=== PATIENT | male | born 1960 | race Caucasian/White ===

== ENCOUNTER 2017-02-20 14:40 | Inpatient (IN) | payer BC ==
[~2017-02-20] VITALS: Ht 172.7 cm; Wt 89.8 kg
--- NOTE | ~2017-02-20 | HP ---
PATIENT'S NAME: RORY CORBIN [facility] AGE: 56 Y [address] ROOM: [address] [address] LOCATION: GPCU ADMIT DATE: 02/20/2017 History & Physical DISCHARGE DATE: FAMILY PHYSICIAN: Efren Waterman MD ATTENDING PHYSICIAN: Mary Rangel DATE OF SERVICE: HISTORY OF PRESENT ILLNESS: This is a 56-year-old male, who presented to [facility] Emergency Department with complaints of jaw pain. He states that the pain actually began on 02/19/2017 in the evening and it did go away after taking an aspirin. The patient also complained of associated pain under his shoulder blade but denied shortness of breath, palpitations, nausea, vomiting, presyncope, or syncope. EKG evaluation in the emergency department showed ST elevations in leads II, III, and aVF as well as T-wave inversions in aVL, V1, and V2. So he was subsequently called a code STEMI and transferred emergently to the catheterization suite where he underwent selective coronary angiography by Dr. Rangel and had a drug-eluting stent placed to his RCA. At the time of this dictation he is resting comfortably in the progressive care unit without any further complaints of jaw, shoulder, or chest pain. PAST MEDICAL HISTORY: 1. Hypertension. 2. Dyslipidemia. 3. Diabetes mellitus type 2 with need for insulin. 4. History of kidney stones. 5. History of neck pain. PAST SURGICAL HISTORY: 1. Right knee scoped x4 as well as an ACL repair x1. 2. Right shoulder surgery. 3. Tonsillectomy. 4. Fatty cyst removal from head. FAMILY HISTORY: The patient's mother had a history of Alzheimer's as well as congestive heart failure and diabetes and hypertension and at the age of 87. His father at the age of 65 due to an aortic tear. He has a brother with a history of thyroid cancer. SOCIAL HISTORY: The patient denies ever using tobacco. He does admit to alcohol use on 1 day a week and on those days, he will have one alcoholic drink. He denies illicit drug use. PATIENT'S NAME: RORY CORBIN [facility] AGE: 56 Y [address] ROOM: [id number] [place], [place] [address] [facility] ADMIT DATE: 02/20/2017 History & Physical DISCHARGE DATE: FAMILY PHYSICIAN: Efren Waterman MD ATTENDING PHYSICIAN: Mary Rangel HOME MEDICATIONS: 1. Invokamet 150/1000 mg p.o. twice daily. 2. Tresiba 20 units subcu daily in the evening. 3. Flexeril 10 mg p.o. daily in the evening. 4. Victoza 1.8 mg subcu daily. 5. Pravachol 80 mg p.o. daily in the evening. 6. Vitamin B12 500 mcg p.o. daily. 7. Vitamin B6 100 mg p.o. daily. 8. Fiber Gummies 2 tabs p.o. daily. 9. Amaryl 2 mg p.o. daily. 10. Cozaar 25 mg p.o. daily in the evening. 11. Ascorbic acid 500 mg p.o. daily. MEDICATION ALLERGIES: Include penicillin. REVIEW OF SYSTEMS: Pertinent positive review of systems is listed in HPI. All other review of systems evaluated are negative. DIAGNOSTIC DATA: Cardiac enzyme trends postprocedure shows CPK of 199, then 169, and 167. CK- MB of 3.3, then 2.6, then 3.6. Troponin I of less than 0.04 and 0.213 and finally 0.517. PHYSICAL EXAMINATION: VITAL SIGNS: Temperature 98.2, pulse 80, respirations 16, blood pressure 150/93, O2 saturation 96% on room air. The patient weighs 89.8 kg. SKIN: [place], warm, and dry. EYES: Sclerae clear. No xanthelasma. ENT: Oral mucosa is pink and moist. No jugular venous distention. No carotid bruits. CHEST: Respirations are even and unlabored. LUNGS: Clear to auscultation. HEART: Regular rate and rhythm. Normal S1, S2. No murmurs, rubs, or gallops. ABDOMEN: Soft and nontender. MUSCULOSKELETAL: Gait is normal. EXTREMITIES: Peripheral pulses are palpable. No clubbing, cyanosis, or edema. PSYCHIATRIC: Alert and oriented. Mood and affect are appropriate. Procedure site: Right radial arterial puncture is soft and nontender with adequate circulation, movement, and sensation noted. PATIENT'S NAME: CORBINRORY DEL REAL [facility] AGE: 56 Y [address] ROOM: [address] [place], [place] [address] [facility] ADMIT DATE: 02/20/2017 History & Physical DISCHARGE DATE: FAMILY PHYSICIAN: Efren Waterman MD ATTENDING PHYSICIAN: Mary Rangel IMPRESSION AND PLAN: Per Dr Rangel: 1. Acute inferior ST elevation myocardial infarction as well as aborted myocardial infarction with placement of a drug-eluting stent to the RCA. The patient is currently on aspirin and Brilinta. 2. Severe diffuse coronary artery disease with a chronic occlusion to the apical LAD segment with [id number] collaterals. Currently on Lipitor. 3. Hypertension. We will add back his home Cozaar dose of 25 mg p.o. daily and we will increase his Coreg to 12.5 mg p.o. twice daily. 4. Diabetes mellitus, type 2, with insulin use needed. 5. Dyslipidemia. We will evaluate an echocardiogram this a.m. to fully evaluate ejection fraction as well as look for wall motion and valvular abnormalities. We will also check a venous ultrasound of the left lower extremity and obtain a dietary consult for him. We will continue to monitor, evaluate, and treat as appropriate. Thank you for allowing [facility] to interact in the care of this patient. ROQUE PARDO APRN FOR MD AUDREY JONES/nichole /[id number] D: [id number] T: [id number] HISTORY & PHYSICAL
--- NOTE | ~2017-02-20 | ER ---
PATIENT'S NAME: RORY CORBIN [facility] AGE: 56 Y [address] ROOM: [place] [address] LOCATION: GPCU ADMIT DATE: 02/20/2017 ER/Outpatient Report DISCHARGE DATE: FAMILY PHYSICIAN: Efren Waterman MD ATTENDING PHYSICIAN: Mary Rangel Time of Arrival: 1440 hours. Time of Evaluation: 1440 hours. CHIEF COMPLAINT: Jaw pain. HISTORY OF PRESENT ILLNESS: The patient is a 56-year-old male who presents to the emergency department today with a chief complaint of jaw pain. He reports it is bilateral. He reports he initially had it last night. He took some aspirin, it went away. He reports he had another episode today. He had pain underneath both shoulder blades as well. Denies any chest pain. Does report some shortness of breath. No fevers or chills. Does have some nausea. No vomiting. No history of similar pain in the past. Denies any history of PE or DVT. No ripping or tearing sensation. It is not maximal in onset. No radiation to the back. Pain is currently 4/10 in severity. Nothing makes it worse, nothing makes it better. PAST MEDICAL HISTORY: Neck pain, kidney stones, insulin-dependent diabetes, hypertension, and dyslipidemia. PAST SURGICAL HISTORY: ACL, shoulder, and multiple knee surgeries. FAMILY HISTORY: Father with aortic tear. Otherwise, no other early heart disease. SOCIAL HISTORY: The patient denies any tobacco use. Reports occasional alcohol use. Denies any illicit drug use. ALLERGIES: PENICILLIN. MEDICATIONS: Please see list. REVIEW OF SYSTEMS: PATIENT'S NAME: RORY CORBIN [facility] AGE: 56 Y [address] ROOM: [place] [id number] LOCATION: GPCU ADMIT DATE: 02/20/2017 ER/Outpatient Report DISCHARGE DATE: FAMILY PHYSICIAN: Efren Waterman MD ATTENDING PHYSICIAN: Mary Rangel All systems are reviewed by myself and are negative with the exception of those discussed in HPI and past medical history. PHYSICAL EXAMINATION: VITAL SIGNS: Weight 92.3 kg, blood pressure 176/103, pulse 98, respiratory rate 20, temperature 98.9, oxygen saturation 96% on room air. GENERAL: The patient is a 56-year-old male, appears stated age, in no acute distress. HEENT: Normocephalic, atraumatic. Pupils are equal, round, and reactive to light. Oropharynx is clear. NECK: Supple. There is no nuchal rigidity. CARDIOVASCULAR: Regular rate and rhythm. No murmurs, rubs, or gallops. LUNGS: Clear to auscultation bilaterally. No wheezes, rales, or rhonchi. ABDOMEN: Soft, nontender, and nondistended. No rebound, rigidity, or guarding. MUSCULOSKELETAL: The patient moves all 4 extremities. SKIN: Warm and dry. LABORATORY DATA AND X-RAYS: Obtained. EKG is obtained. It is interpreted by myself at 1446 hours. It does show sinus rhythm with a rate of 85. Normal axis. Normal intervals. There are Q-waves noted in III and aVF. There is no ST elevation, ST depression, or T-wave inversions noted. CBC is unremarkable. Coags are normal. D-dimer is normal. CMP is normal except for a glucose of 286, AST is 43, ALT is normal. Magnesium is normal. CK is normal. CK-MB is normal. Troponin is less than 0.04. ProBNP is normal. A repeat EKG was obtained and does show a significant change with ST elevations noted in II, III, and AVF. There is T-wave inversions in aVL, V1 V2, which are all new from previous EKG done at 1446 hours, heart rate is 93, normal intervals. IMPRESSION: 1. ST-elevation myocardial infarction. 2. Uncontrolled diabetes mellitus. 3. Initial visit. EMERGENCY DEPARTMENT COURSE: The patient was brought back to the examination room. Seen and evaluated by myself. IV is established. Laboratory analysis and imaging are obtained as described above. The patient's initial EKG is unremarkable except for Q- waves. There was no ST elevation. The patient was given 3 nitroglycerin and 4 baby aspirin with no relief from the patient's pain. He was given 2 mg of morphine IV. It was noted on the monitor that the patient developed a rhythm change. A repeat EKG was obtained and noted. The patient has an ST-elevation myocardial infarction. Code STEMI was called at that time. I did discuss the case with Dr. Rangel. We did give 5000 heparin bolus as well as 80 of PATIENT'S NAME: RORY CORBIN [facility] AGE: 56 Y [address] ROOM: [address] [address] LOCATION: [facility] ADMIT DATE: 02/20/2017 ER/Outpatient Report DISCHARGE DATE: FAMILY PHYSICIAN: Efren Waterman MD ATTENDING PHYSICIAN: Mary Rangel. The patient did require critical care time of 31 minutes. This did include talking with the patient, talking with consultants, ordering tests, reviewing tests, as well as close monitoring the patient with ST-elevation myocardial infarction. DISPOSITION: The patient is transferred directly to the heart catheterization lab under the care of Dr. Ranegl in critical condition. DO RD ALANIZ/durgal /[id number] d: 02/21/17 0036 t: 02/21/17 1439, OUTPATIENT REPORT
--- NOTE | ~2017-02-20 | ECHO ---
Transthoracic Echocardiography Report (TTE) Demographics Patient Name RORY CORBIN Date of Study 02/21/2017 Patient Number [id number] Visit Number [id number] Date of 1960 Room Number G6314 Gender Male Number Age 56 year(s) Referring Juan Carlos Albert Refinish Technician Teresa Alfaro, Physician A RT,RVT,RDCS Physician Interpreting Juan Carlos Albert Mold Cooler Physician A MD Supervising Ordering Juan Carlos Albert MD/MLP Physician A Nurse Stress Pole Truck Driver Conclusions Contractility Score Summary Normal Left Ventricular contractility was noted. Summary The estimated left ventricular ejection fraction is 70-75%. Mild assymetric septal left ventricular hypertrophy. Procedure Type of Study TTE procedure:2D Echocardiogram, M-Mode, Doppler , Color Doppler. Procedure Date Date: 02/21/2017 Start: 09:16 AM Study Location: Inpatient Portable Technical Quality: Adequate visualization Indications:Chest pain. Appropriate Use Criteria: 9 Patient Status: Routine HR: 74 bpm BP: 146/86 mmHg Allergies - Penicillin. M-Mode/2D Measurements LV Diastolic Dimension: 4.32 cm LV Systolic Dimension: 2.57 cm LV Septum Diastolic: 1.35 cm LV PW Diastolic: 1.21 cm AO Root Dimension: 3.3 cm Cardiac Output: 6.02 l/min AV Cusp Separation: 1.8 cm RV Diastolic Dimension: 2.86 cm EF Estimated: 70 % LVOT: 2.2 cm MV EPSS: 0.1 cm LVOT VTI: 21.4 cm LV Stroke volume: 81.31 ml Doppler Measurements AV Peak Velocity: 1.14 m/s MV Peak E-Wave: 0.82 m/s AV Peak Gradient: 5.2 mmHg MV Peak A-Wave: 0.53 m/s AV Mean Gradient: 3 mmHg MV E/A Ratio: 1.55 LVOT Peak Velocity: 1.17 m/s MV P1/2t: 56 msec PV Peak Velocity: 0.75 m/s E' Septal Velocity: 0.08 m/s PV Peak Gradient: 2.22 mmHg MV E/E' Ratio: 10 A' Septal Velocity: 0.13 m/s Findings Left Ventricle Mild assymetric septal left ventricular hypertrophy. Diastolic assessment reveals Grade II pseudonormal diastolic function. . Right Ventricle Normal right ventricle structure and function. Left Atrium Normal left atrial size. Right Atrium Normal right atrial size. Mitral Valve Normal mitral valve structure and function. Aortic Valve Normal aortic valve structure and function. Tricuspid Valve Normal tricuspid valve structure and function. Pulmonic Valve Normal pulmonic valve structure and function. Pericardial Effusion No evidence of pericardial effusion. Miscellaneous Visualized portions of the aortic root and ascending aorta appear normal in size. Pleural Effusion No evidence of pleural effusion. Contractility Score LV regional wall motion:(0-Non visualized 1-Normal 2-Hypokinesis 3-Akinesis 4-Dyskinesis 5-Aneurysm) Signature dtt: Mary Rangel dtd: 02/21/17 0916 Physician Self Edit
--- NOTE | ~2017-02-20 | ENPV ---
Vascular Lower Extremities DVT Study Procedure Demographics Patient Name RORY CORBIN Date of Study 02/21/2017 Patient Number [id number] Gender Male Date of 1960 Age 56 Visit Number [id number] Height 68.11 Weight 203.05 Number Referring [facility] Efren Kyle MD Interpreting Abhishekou Ricardoayotijen Physician Juan Carlos Albert Physician Anabella Kyle MD Physician Ordering Marytratiou Panayotis Cement Finisher Apprentice Physician A Trainman Marilia Bassett [facility] Conclusions Summary No evidence of deep vein thrombosis or superficial thrombophlebitis in the left lower extremity . Procedure Type of Study: Veins:Lower Extremities DVT Study, Lower Extremity Left. Indications for Study:Pain in Limb. Additional Indications:Post STEMI Appropriate Use Criteria:9 Allergies - Penicillin. Patient Status:Routine. Study Location:Inpatient Portable. Technical Quality:Adequate visualization. Risk Factors - The patient's risk factor(s) include: diabetes mellitus and dyslipidemia. Velocities are measured in cm/s ; Diameters are measured in cm Right Lower Extremities DVT Study Measurements Right 2D and Doppler Measurements + + + + +------+------+ + !Location !Visualized!Compressibility!Thrombosis!Signal!Reflux!Reflux ! ! ! ! ! ! ! !(sec) ! + + + + +------+------+ + !Common !Yes !Yes !None !Phasic! ! ! !Femoral ! ! ! ! ! ! ! + + + + +------+------+ + Left Lower Extremities DVT Study Measurements Left 2D and Doppler Measurements + + + + +------+------+ + !Location !Visualized!Compressibility!Thrombosis!Signal!Reflux!Reflux ! ! ! ! ! ! ! !(sec) ! + + + + +------+------+ + !GSV Thigh !Yes !Yes !None !Phasic! ! ! + + + + +------+------+ + !Common !Yes !Yes !None !Phasic! ! ! !Femoral ! ! ! ! ! ! ! + + + + +------+------+ + !Prox !Yes !Yes !None !Phasic! ! ! !Femoral ! ! ! ! ! ! ! + + + + +------+------+ + !Mid Femoral!Yes !Yes !None !Phasic! ! ! + + + + +------+------+ + !Dist !Yes !Yes !None !Phasic! ! ! !Femoral ! ! ! ! ! ! ! + + + + +------+------+ + !Popliteal !Yes !Yes !None !Phasic! ! ! + + + + +------+------+ + !Gastroc !Yes !Yes !None ! ! ! ! + + + + +------+------+ + !PTV !Yes !Yes !None ! ! ! ! + + + + +------+------+ + !Peroneal !Yes !Yes !None ! ! ! ! + + + + +------+------+ + Signature dtt: Mary Rangel dtd: 02/21/17 1118 Physician Self Edit
--- NOTE | ~2017-02-20 | CATH ---
Cardiac Diagnostic + PCI Report Demographics Patient Name EMERALD Boykin Gender Male Date of 1960 Age 56 year(s) Patient Number [id number] Date of Study 02/20/2017 Visit Number [id number] Room Number G63[address] [place] [id number] Ht 173 cm Wt 92.1 kg Referring Efstratiou Primary Physician Physician Roosevelt Kyle MD Performing Efstratiou Secondary Physician Physician Roosevelt Kyle MD Diagnostic Efstratiou Assisting Physician Physician Roosevelt Kyle MD Interventional Efstratiou Physician Dimension Mill Worker Physician Roosevelt Kyle MD Findings and Conclusions Diagnostic Findings and Conclusion Diffuse severe CAD, culprit of STEMI 100% RCA stenosis, patient also has chronic occlusion of apical segment of LAD with left to left collaterals Diagnostic Recommendations PCI to RCA Interventional Findings and Conclusion Successful KEENA to RCA Interventional Recommendations Procedure Description The patient was brought to the diagnostic cardiac catheterization-EP laboratory by emergency personal. Physician deemed procedure as EMERGENT. The planned puncture-incision site(s) were shaved and prepped with ChloraPrep and draped in the usual sterile manner. Conscious sedation, supplemental oxygen, and pain control medications were delivered by a registered nurse under physician guidance. Surface ECG rhythm, blood pressure measurement, and pulse oximetry were monitored throughout the procedure. Arterial access. The access site was infiltrated with lidocaine. The vessel was entered with the Seldinger technique. A sheath was advanced into the vessel and used for catheter placement. Selective left coronary angiography. A catheter was advanced into the left coronary vessel ostium under Fluoroscopic guidance. Contrast was injected by hand. Images were obtained in multiple projections. Selective right coronary angiography. A catheter was advanced into the right coronary vessel ostium under fluoroscopic guidance. Contrast was injected by hand. Images were obtained in multiple projections. Arterial artery hemostasis was achieved. The patient was transferred to a regular nursing floor via cart accompanied by a nurse. The patient left the laboratory in stable condition. Interventional Cath Status: Emergency Procedure Procedure Type Diagnostic procedure:Ventriculogram:, Left, Angiography:, Coronary Angios w/[facility] PCI procedure:Drug Eluting Coronary Stent:, RCA Indications: Acute NM. The procedure was explained in detail to the patient. Risks, complications and alternative treatments were reviewed. Written consent was obtained. Medications Reviewed with Patient prior to Procedure. Angiographic Findings Dominance: Right Cardiac Arteries and Lesion Findings LMCA: Normal (0% Stenosis). LAD: Abnormal. Lesion on Prox LAD: 30% stenosis . Lesion on Mid LAD: 75% stenosis . Lesion on Dist LAD: 100% stenosis . Lesion on 1st Dia% stenosis . LCx: Abnormal. Lesion on Prox CX: 50% stenosis . Lesion on 1st Ob Chrissy% stenosis . RCA: PL 30% stenosis, PDA 30% stenosis Lesion on Mid RCA: 100% stenosis reduced to 0%. Pre procedure LEXI I flow was noted. Post Procedure LEXI III flow was present. The guidewire cross was successful.The lesion was diagnosed as a high risk lesion.Culprit lesion. Devices used - Whisper Wire .014 x 190. Number of passes: 1. - Emerge Balloon 2.5 x 12. 2 inflation(s) to a max pressure of: 14 sena. - Promus Premier 4.0 x 24 Stent. 1 inflation(s) to a max pressure of: 16 sena. Lesion on Mid RCA: 100% stenosis .Culprit lesion. Lesion on Prox RCA: 30% stenosis . Coronary Tree Procedure Data Procedure Date Date: 02/20/2017Start: 03:39 PMEnd: 05:11 PM Entry Locations - Retrograde Percutaneous access was performed through the Right Radial artery (Primary location). A 6 Fr sheath was inserted. Hemostasis was successfully obtained using a TR band. Closure Comments: 16 cc air by Alana. Procedure Medications Order and Administration + + +-------+---------+ !Time !Medication !Dosage !Route ! + + +-------+---------+ !02/20/2017 !Fentanyl !50 mcg ! ! !03:39 PM ! ! ! ! + + +-------+---------+ 02/20/2017 !Oxygen !2 l/min! ! !03:42 PM ! ! ! ! + + +-------+---------+ 02/20/2017 !PAE Radial Cocktail: Heparin 5000 units, ! !I.A. ! !03:42 PM !Nitroglycerin 200mcg, Verapamil 3 mg ! ! ! ! !(ACC_3) ! ! ! + + +-------+---------02/20/2017 !Fentanyl !50 mcg ! ! !03:57 PM ! ! ! ! + + +-------+---------+ 02/20/2017 !0.9% NaCl !200 ml !I.V. drip! !03:56 PM ! ! ! ! + + +-------+---------02/20/2017 !Integrilin (ACC_7) !20 mg !I.C. ! !04:01 PM ! ! ! ! + + +-------+---------+ !02/20/2017 !Brilinta (Ticagrelor) (ACC_20) !180 mg !P.O. ! !04:18 PM ! ! ! ! + + +-------+---------+ !02/20/2017 !0.9% NaCl !100 ml !I.V. drip! !04:19 PM ! ! ! ! + + +-------+---------+ Devices Used - A6 Fr. BS JL 3.5 Diag. Catheterwas used for:Left coronary angiography. - A6 Fr. HS Guide Catheterwas used for:Right coronary angiography. - A6 Fr. JR4 Guide Catheterwas used for:Right coronary angiography. - A6 Fr. Guidlinerwas used for:RCA Intervention. - A6 Fr. Guidlinerwas used for:Right coronary angiography. - A6 Fr. BS Angled Pigtail Diag. Catheterwas used for:LV Pressures. Contrast Material - Isovue [id number] ml Fluoroscopy Time: Diagnostic: 10:24 minutes. Total: 10:24 minutes. Fluoroscopy Dose: Diagnostic: 1737 mGy. Total: 1737 mGy. Additional [facility] PCI Information PCI Indication:Immediate PCI for STEMI. Medical History Allergies - Penicillin. Risk Factors The patient risk factors include:family history of premature CAD, diabetes mellitus and dyslipidemia. Admission Data Admission Date: 02/20/2017 Admission Time: 03:31 PM Arrival Date: 02/20/2017 Arrival Time: 12:00 AM Admit Source: Emergency department Insurance Payors: Private health insurance. Admission Medications + +------+------+ + + + + !Medication!Dosage!Times !Last !Last !Administered !Comments ! ! ! !Per !Delivery !Delivery ! ! ! ! ! !Day !Date !Time ! ! ! + +------+------+ + + + + !Statin ! ! !02/20/2017 !12:00 AM !Yes ! ! !(any) ! ! ! ! ! ! ! + +------+------+ + + + + Clinical Evaluation Leading to Procedure - The patient's CAD presentation was assessed as: STEMI. Snapshots Hemodynamics Condition: Rest O2 Consumption: Estimated: 256.24Heart Rate: 86 bpm Pressures (mmHg) +-----+ + !Site !Pressure ! +-----+ + !AO !120/82 (100) ! +-----+ + !LV !128/1 ,9 ! +-----+ + !LV !132/0 ,8 ! +-----+ + !LV !135/2 ,10 ! +-----+ + !LV !139/3 ,10 ! +-----+ + !AO !138/81 (107) ! +-----+ + !LV !138/2 ,10 ! +-----+ + Valve Gradients and Areas + +---------+---------+---------+ +---------+ + !Valve !Peak !Mean !Area !Index !Flow !Source ! + +---------+---------+---------+ +---------+ + !Aortic !0 !0 ! ! ! ! ! + +---------+---------+---------+ +---------+ + !Aortic !0 !0 ! ! ! ! ! + +---------+---------+---------+ +---------+ + Shunts Oxygen Values O2 Capacity 235.28 O2 Consumption 256.24 Discharge Data Discharge Date: 02/21/2017 Hospital Status: Inpatient Signatures dtt: Mary Rangel dtd: 02/20/17 1539 Physician Self Edit
[2017-02-20 15:02] LABS: BASOPHIL # 0.1 K/uL (0.0-0.2); BASOPHIL % 0.5 %; EOSINOPHIL # 0.4 K/uL (0.0-0.5); EOSINOPHIL % 3.2 %; HEMATOCRIT 51.4 % (37.0-53.0); HEMOGLOBIN 17.3 g/dL (12.0-17.0); IMMATURE GRANULOCYTE % 0.3 %; LYMPHOCYTE # 2.4 K/uL (0.8-4.0); LYMPHOCYTE % 21.9 %; MCH 29.4 pg (27.0-34.0); MCHC 33.7 gm/dL (32.0-36.5); MCV 87.4 fl (83.0-98.0); MONOCYTE # 1.2 K/uL (0.0-1.0); MONOCYTE % 11.1 %; MPV 10.6 fl (9.4-12.4); NEUTROPHIL # (ANC) 6.9 K/uL (1.4-9.0); NRBC % 0 /100WBC (0-0.00); PLATELET COUNT 241 K/uL (150-450); RBC 5.88 M/uL (4.00-6.00); RDW-CV 13.8 % (11.9-14.6); WBC 10.9 K/uL (4.0-11.0)
[2017-02-20 15:09] LABS: INR - (THERAPEUTIC) 0.96 (0.92-1.07); PROTIME 10.1 SECONDS (9.8-11.4); PTT 29 SECONDS (25-32)
[2017-02-20 15:20] LABS: ALBUMIN 4.2 gm/dL (3.5-5.0); ALK PHOS 105 IU/L (33-138); ALT 66 IU/L (12-78); ANION GAP 11.1 (10.0-19.0); AST 43 IU/L (10-40); BLOOD UREA NITROGEN 11 mg/dL (6-24); CALCIUM 9.4 mg/dL (8.5-10.5); CHLORIDE 102 mMol/L (96-110); CO2 29 mMol/L (22-32); CPK 199 IU/L (35-332); ESTIMATED GFR (MDRD EQUATION) > 60; MAGNESIUM 2.2 mg/dL (1.8-2.6); POTASSIUM 4.1 mMol/L (3.7-5.1); SODIUM 138 mMol/L (135-145); TOTAL BILIRUBIN 0.5 mg/dL (0.0-1.5); TOTAL PROTEIN 8.1 g/dL (6.0-8.4)
[2017-02-20] MEDS ORDERED: INVOKAMET 150-1 EACH PO (17:24)
[2017-02-20] MEDS ORDERED: TRESIBA FL100 UNIT/1 SUB-Q (17:25)
[2017-02-20] MEDS ORDERED: FLEXERIL10 MG PO (17:25)
[2017-02-20] MEDS ORDERED: VICTOZA 2-0.6 MG/0.1 SUB-Q (17:26)
[2017-02-20] MEDS ORDERED: VITAMIN B-6100 MG PO (17:27)
[2017-02-20] MEDS ORDERED: VITAMIN B-12500 MCG PO (17:27)
[2017-02-20] MEDS ORDERED: PRAVACHOL80 MG PO (17:27)
[2017-02-20] MEDS ORDERED: FIBER GUMMIES1 EACH PO (17:28)
[2017-02-20] MEDS ORDERED: AMARYL2 MG PO (17:30)
[2017-02-20] MEDS ORDERED: COZAAR100 MG PO (17:35)
[2017-02-20] MEDS ORDERED: ASCORBIC ACID500 MG PO (17:39)
--- NOTE | 2017-02-20 18:16 | NUR ---
Patient is 56 yo male admitted from the [facility] following a heart cath w/stent placed for STEMI. patient was at his house for lunch and started having jaw pain about 1415 today. he states he wasn't going to mess around with it so came to the ER. he then was placed with CODE STEMI and went to the [facility]. has saline lock in right mid-forearm and left forearm without erythema or edema noted at either site. patient is having some pain in his right scapular area. he states it feels like a muscle is tight and just needs to stretch. this is massaged for a minute or so for him with some relief. Education is given as documented. patient and family deny questions. pneumatics are on bilat calves. pt fransisca well. call light is within reach. denies needs at this time. report is given to FREEMAN James.
--- NOTE | 2017-02-20 18:41 | NUR ---
Significant Event: POST-CATH PATIENT C/O RIGHT JAW PAIN RATING 4/10. DR VERGARA SEEN AT BEDSIDE WITH NITRO GTT STARTED AT 5MCG/MIN IV. PAIN IMPROVED. SBP 140-160'S. HR 90'S. AFEBRILE. ON 2L/NC PER ACS PROTOCOL. LUNGS CLEAR DIM. RIGHT RADIAL CATH SITE SOFT WITH RADIAL BAND INTACT. 2ML REMOVED AT 1755 WITH 11ML AIR REMAINING. NO BRUISING, BLEEDING, OR HEMATOMA. NS AT 100ML/HR [id number] VIA L) WRIST PIV. R) AC PIV SL'D. Follow up: EKG AND ECHO IN AM. CARDIAC ENZYMES T/O NEXT 24 HOURS. CONT TO MONITOR PER PLAN OF CARE.
--- NOTE | 2017-02-21 04:57 | NUR ---
Significant Event:A/Ox3. VSS. Weaned to RA with sats >90%. R)radial band removed and replaced with bandaid/coban. 2+pulses slight numbness to R)hand but improved throughout the night. Ambulated in halls x2 laps SBA no c/o CP or SOB. Dull midback noted after laboratory supervisor and that pain has not changed with medication, positioning or warm blankets. Voids per urinal. Follow up:Post STEMI. at the bedside.
[2017-02-21 07:01] LABS: ALBUMIN 3.4 gm/dL (3.5-5.0); ALK PHOS 56 IU/L (33-138); ALT 47 IU/L (12-78); ANION GAP 11.5 (10.0-19.0); AST 31 IU/L (10-40); BLOOD UREA NITROGEN 13 mg/dL (6-24); CALCIUM 8.4 mg/dL (8.5-10.5); CHLORIDE 107 mMol/L (96-110); CO2 25 mMol/L (22-32); CREATININE 0.6 mg/dL (0.6-1.3); ESTIMATED GFR (MDRD EQUATION) > 60; POTASSIUM 3.5 mMol/L (3.7-5.1); SODIUM 140 mMol/L (135-145); TOTAL PROTEIN 6.4 g/dL (6.0-8.4)
[2017-02-21 07:03] LABS: TOTAL BILIRUBIN 0.8 mg/dL (0.0-1.5)
--- NOTE | 2017-02-21 14:10 | NUR ---
CONSULT RE: F/U POST STEMI RECEIVED. HEART CATH W/ STENT PLACED FOR STEMI. IN ROOM DURING VISIT. REVIEWED HEART HEALTHY DIET EDUCATION MATERIAL W/ PT AND . REVIEWED DIET AT HOME AND PROVIDED ALTERNATIVE FOOD CHOICES. BRIEFLY REVIEWED GROCERY AND COOKING TIPS. LEFT HEART HEALTHY DIET EDUCATION MATERIAL AND CONTACT INFORMATION WITH PT.
[2017-02-21] MEDS ORDERED: LIPITOR80 MG PO (17:07)
[2017-02-21] MEDS ORDERED: ASPIRIN EC81 MG PO (17:08)
[2017-02-21] MEDS ORDERED: COREG12.5 MG PO (17:12)
[2017-02-21] MEDS ORDERED: BRILINTA90 MG PO (17:18)
[2017-02-21] MEDS ORDERED: TYLENOL325 MG PO (17:20)
--- NOTE | 2017-02-21 18:00 | NUR ---
PATIENT A/OX3, VSS ON ROOM AIR. NO COMPLAINTS OF PAIN. RIGHT RADIAL CATH SITE IS COVERED WITH BAND-AID/COBAN-C/D/I, NO DRAINAGE/HEMATOMA NOTED TO SITE. DISMISSAL INSTRUCTIONS, NEW MEDICATIONS GONE OVER WITH PATIENT AND , NO FURTHER QUESTIONS AT THIS TIME. PT. WILL COME BACK IN ON MARCH 01 FOR ANOTHER HEART CATH WITH STENT. IV'S REMOVED WITHOUT DIFFICULTLY. ALL BELONGINGS SENT HOME WITH PATIENT. BLOOD SUGAR WAS 316, TREATED WITH 6 UNITS BEFORE DISMISSAL. INSULIN PEN SENT HOME WITH PATIENT.
== END 2017-02-21 18:05 | disposition disaster alternative care site (69) | DRG 247 ==
LOC: GMED 14:40 → GPCU 15:31
PROVIDERS: Emergency Medicine; ADMIT Internal Medicine Cardiovascular Disease
PROC: B2151ZZ Fluoroscopy of Left Heart using Low Osmolar Contrast (ICD-10-PCS; principal; 2017-02-20)
PROC: 4A023N7 Measurement of Cardiac Sampling and Pressure, Left Heart, Percutaneous Approach (ICD-10-PCS; principal; 2017-02-20)
PROC: B2111ZZ Fluoroscopy of Multiple Coronary Arteries using Low Osmolar Contrast (ICD-10-PCS; principal; 2017-02-20)
PROC: 027034Z Dilation of Coronary Artery, One Artery with Drug-eluting Intraluminal Device, Percutaneous Approach (ICD-10-PCS; principal; 2017-02-20)
DX: I21.19 ST elevation (STEMI) myocardial infarction involving other coronary artery of inferior wall (principal); I10 Essential (primary) hypertension; E11.9 Type 2 diabetes mellitus without complications; E78.5 Hyperlipidemia, unspecified; I25.10 Atherosclerotic heart disease of native coronary artery without angina pectoris; Z87.442 Personal history of urinary calculi
CPT/HCPCS: C1725; C1769; C1874; C1887; C1894; C9606; J1327; J1644; J2270; J3010; J7030

== ENCOUNTER 2017-03-01 06:13 | Inpatient (IN) | payer BC ==
[~2017-03-01] VITALS: Ht 172.7 cm; Wt 89.9 kg
--- NOTE | ~2017-03-01 | ENPV ---
Vascular Upper Extremities PVR Procedure Demographics Patient Name RORY CORBIN Date of Study Patient Number [id number] Gender Male Date of 1960 Age 56 Visit Number [id number] Height 68 Accession Number [id number] Weight 197.98 Referring Aimee Russo DO Interpreting Jonathan Edmonds MD Physician Guevara Kyle MD Physician Juan Carlos Kyle MD Physician Ordering Physician Aimee Russo Yard Foreman DO Roster Clerk Jamshid Soto, T Conclusions Summary The left hernadez arch is complete and is radial artery dominate. Left radial artery harvesting is not recommended. Procedure Type of Study: Extremities Arteries:Upper Extremities PVR, Radial Allens Doppler. Indications for Study:Pre-op CABG and Pre-op for arterial harvesting. Appropriate Use Criteria:7 Allergies - Penicillin. Patient Status:Routine. Study Location:Inpatient Portable. Technical Quality:Adequate visualization. Risk Factors - The patient's risk factor(s) include: insulin-treated diabetes mellitus, dyslipidemia, treated arterial hypertension and prior [place] . - The patient's last creatinine was 0.6 mg/dl. Signature dtt: MITCHEL NOBLE dtd: Physician Self Edit
--- NOTE | ~2017-03-01 | CATH ---
Cardiac Diagnostic Report Demographics Patient Name EMERALD Boykin Gender Male Date of 1960 Age 56 year(s) Patient Number [id number] Date of Study 03/01/2017 Visit Number [id number] Room Number [id number] [place] [id number] Ht 172.72 cm Wt 89.8 kg Referring Efstratiou Primary Physician Physician Roosevelt Kyle MD Performing Efstratiou Secondary Physician Physician Roosevelt Kyle MD Diagnostic Efstratiou Assisting Physician Physician Roosevelt Kyle MD Interventional Physician Iron Installer Physician Findings and Conclusions Diagnostic Findings and Conclusion There is no visualization of the apical LAD segment today. Therefore attempt to PCI was abandoned. Diagnostic Recommendations CABG Procedure Description The patient was brought to the diagnostic cardiac catheterization-EP laboratory in the fasting, non-sedated state. Informed consent was obtained in the written and verbal form after the risks and benefits were explained. The patient had no further questions and agreed to proceed. The planned puncture-incision site(s) were shaved and prepped with ChloraPrep and draped in the usual sterile manner. Conscious sedation, supplemental oxygen, and pain control medications were delivered by a registered nurse under physician guidance. Surface ECG rhythm, blood pressure measurement, and pulse oximetry were monitored throughout the procedure. Arterial access. The access site was infiltrated with lidocaine. The vessel was entered with the Seldinger technique. A sheath was advanced into the vessel and used for catheter placement. Selective left coronary angiography. A catheter was advanced into the left coronary vessel ostium under Fluoroscopic guidance. Contrast was injected by hand. Images were obtained in multiple projections. Selective right coronary angiography. A catheter was advanced into the right coronary vessel ostium under fluoroscopic guidance. Contrast was injected by hand. Images were obtained in multiple projections. Arterial artery hemostasis was achieved. The patient was transferred to a regular nursing floor via cart accompanied by a nurse. The patient left the laboratory in stable condition. Diagnostic Cath Status: Urgent Procedure Procedure Type Diagnostic procedure:Angiography:, Coronary Angios Indications: Prior PCI with stent placement and Angina. The procedure was explained in detail to the patient. Risks, complications and alternative treatments were reviewed. Written consent was obtained. Medications Reviewed with Patient prior to Procedure. Angiographic Findings Dominance: Right Cardiac Arteries and Lesion Findings LMCA: Lesion on LMCA: Proximal subsection.50% stenosis . LAD: 80% mid and 100% distal Lesion on Mid LAD: Mid subsection.80% stenosis . Lesion on Dist LAD: Distal subsection.100% stenosis . Lesion on 1st Diag: Proximal subsection.70% stenosis . LCx: Lesion on Prox CX: Proximal subsection.80% stenosis . RCA: patent stentThere is a previous stent on Mid RCA. Coronary Tree Procedure Data Procedure Date Date: 03/01/2017Start: 08:44 AMEnd: 09:23 AM Entry Locations - Retrograde Percutaneous access was performed through the Right Radial artery (Primary location). A 6 Fr sheath was inserted. Hemostasis was successfully obtained using Mechanical Compression. Closure Comments: 16cc's of air in R-Band applied by Denzel LEDEZMA Procedure Medications Order and Administration + + +---------+---------+ !Time !Medication !Dosage !Route ! + + +---------+---------+ !03/01/2017 !Versed !1 mg !I.V. ! !08:35 AM ! ! ! ! + + +---------+---------+ !03/01/2017 !Fentanyl !50 mcg !I.V. ! !08:36 AM ! ! ! ! + + +---------+---------03/01/2017 !Oxygen !2 l/min !NC ! !08:40 AM ! ! ! ! + + +---------+---------03/01/2017 !PAE Radial Cocktail: Heparin 5000 units,! !I.A. ! !08:43 AM !Nitroglycerin 200mcg, Verapamil 3 mg ! ! ! ! !(ACC_3) ! ! ! + + +---------+---------03/01/2017 !Heparin (ACC_3) !3000 !I.V. ! !08:44 AM ! !units ! ! + + +---------+---------03/01/2017 !Nitroglycerin !5 mcg/min!I.V. drip! !09:10 AM ! ! ! ! + + +---------+---------03/01/2017 !Oxygen ! !NC ! !09:18 AM ! ! ! ! + + +---------+---------+ Devices Used - A6 Fr. XBLAD 3.5 Guide Catheterwas used for:LAD Intervention. - A6 Fr. EBU 3.75 Guide Catheterwas used for:LAD Intervention. - A6 Fr. JL 4 JJ Guide Catheterwas used for:LAD Intervention. - A6 Fr. JL3.5 Guide Catheterwas used for:LAD Intervention. - A6 Fr. BS JR 4 Diag. Catheterwas used for:Right coronary angiography. Contrast Material - Isovue 40000 ml Fluoroscopy Time: Diagnostic: 8:06 minutes. Total: 8:06 minutes. Fluoroscopy Dose: Diagnostic: 1175 mGy. Total: 1175 mGy. Estimated Blood Loss: 15 ml. Medical History Allergies - Penicillin. Risk Factors The patient risk factors include:prior PCI on 02/20/2017;treated hypertension, family history of premature CAD, insulin-treated diabetes mellitus, last creatinine: 0.6 mg/dl, creatinine clearance: 176.69 ml/min, dyslipidemia and prior [place] . Admission Data Admission Date: 03/01/2017 Admission Time: 09:24 AM Admit Source: Other Insurance Payors: Private health insurance. Admission Medications + +------+------+ + + + + !Medication !Dosage!Times !Last !Last !Administered !Comments ! ! ! !Per !Delivery !Delivery ! ! ! ! ! !Day !Date !Time ! ! ! + +------+------+ + + + + !Aspirin ! ! ! ! !Yes ! ! !(any) ! ! ! ! ! ! ! + +------+------+ + + + + !Statin ! ! ! ! !Yes ! ! !(any) ! ! ! ! ! ! ! + +------+------+ + + + + !Beta ! ! ! ! !Yes ! ! !Sylvester ! ! ! ! ! ! ! !(any) ! ! ! ! ! ! ! + +------+------+ + + + + !ARB (any) ! ! ! ! !Yes ! ! + +------+------+ + + + + !Ticagrelor ! ! ! ! !Yes ! ! + +------+------+ + + + + Clinical Evaluation Leading to Procedure - The patient's CAD presentation was assessed as: STEMI.The symptom onset was first noted on 02/20/2017 03:30 PM(time was estimated). - The patient's anginal syndrome during the past two weeks was assessed as: Class IV according to the [place] Cardiovascular Society Classification System (CCS). Anti-anginal medications were prescribed during the past two weeks. The medication is: Beta Blockers. Snapshots Hemodynamics Condition: Rest O2 Consumption: Estimated: 244.67Heart Rate: 74 bpm Pressures (mmHg) +-----+ + !Site !Pressure ! +-----+ + !AO !103/78 (90) ! +-----+ + Shunts Oxygen Values O2 Consumption 244.67 Discharge Data Discharge Date: 03/09/2017 Hospital Status: Inpatient Signatures dtt: Mary Rangel dtd: 03/01/17 0844 Physician Self Edit
--- NOTE | ~2017-03-01 | ENPV ---
Carotid Duplex Study Demographics Patient Name RORY CORBIN Date of Study 03/01/2017 Patient Number [id number] Gender Male Date of 1960 Age 56 Visit Number [id number] Height 68 Accession Number [id number] Weight 197.98 Referring [facility] Efren Kyle Interpreting Juan Carlos Albert Physician Physician A Physician Ordering Juan Carlos Albert Explosive Ordnance Manager Physician A Recreational Director Thomas Loja [facility] Conclusions Summary The right internal carotid artery has mild, 1-39%, plaque and stenosis. The left internal carotid artery has mild, 1-39%, plaque and stenosis. The right vertebral artery is present with antegrade flow. The left vertebral artery is present with antegrade flow. Procedure Type of Study: Cerebral:Carotid, Carotid Doppler Bilateral. Indications for Study:Pre surgical clearance. Allergies - Penicillin. Patient Status:Routine. Study Location:Inpatient Portable. Technical Quality:Adequate visualization. Risk Factors - The patient's risk factor(s) include: insulin-treated diabetes mellitus, dyslipidemia, treated arterial hypertension and prior [place] . - The patient's last creatinine was 0.6 mg/dl. Velocities are measured in cm/s ; Diameters are measured in cm Carotid Right Measurements Carotid Left Measurements + +--------+--------+ + + + +--------+ --------+ + + !Location !PSV !EDV !Angle !%Stenosis ! !Location !PSV ! EDV !Angle !%Stenosis ! + +--------+--------+ + + + +--------+ --------+ + + !Prox CCA !58 !12 !56 ! ! !Prox CCA !76 ! 12 !56 ! ! + +--------+--------+ + + + +--------+ --------+ + + !Dist CCA !68 !15 !56 ! ! !Dist CCA !73 ! 16 !56 ! ! + +--------+--------+ + + + +--------+ --------+ + + !Prox ICA !32 !9 !36 ! ! !Prox ICA !45 ! 9 !44 ! ! + +--------+--------+ + + + +--------+ --------+ + + !Dist ICA !45 !13 !36 ! ! !Dist ICA !52 ! 20 !44 ! ! + +--------+--------+ + + + +--------+ --------+ + + !Prox ECA !68 ! !36 ! ! !Prox ECA !84 ! !56 ! ! + +--------+--------+ + + + +--------+ --------+ + + !Vertebral !29 ! !40 ! ! !Vertebral !34 ! !56 ! ! + +--------+--------+ + + + +--------+ --------+ + + !Subclavian !41 ! ! ! ! !Subclavian !75 ! ! ! ! + +--------+--------+ + + + +--------+ --------+ + + - There is antegrade vertebral flow noted on the right side. - There is antegrade verte bral flow noted on the left side. - Add'l Measurements:ICAPSV/CCAPSV 0.78.ICAEDV/CCAEDV 1.05. - Add'l Measurements:ICAPS V/CCAPSV 0.69.ICAEDV/CCAEDV 1.69. Signature dtt: Mary Rangel dtd: 03/01/17 1103 Physician Self Edit
--- NOTE | ~2017-03-01 | DS ---
PATIENT'S NAME: RORY CORBIN [facility] AGE: 57 Y [address] ROOM: [address] [address] LOCATION: GPCU ADMIT DATE: 03/01/2017 Discharge Summary DISCHARGE DATE: 03/09/2017 FAMILY PHYSICIAN: Efren Waterman MD ATTENDING PHYSICIAN: Hosea Yu [facility] COURSE: The patient is a 56-year-old white male who originally on February 20, 2017, had presented to [facility] as a code STEMI. He was taken emergently to the catheterization lab by Dr. Rangel with findings of multivessel coronary artery disease with a 100% occluded RCA. Dr. Rangel was able to place a drug-eluting stent to the right coronary system. Given that the patient had further need for coronary intervention, he was placed on Brilinta and discharged for a followup slated for March 01, 2017 for further stent placement. During the time of the intervention, the patient's vasculature would not allow for further intervention and Dr. Rangel spoke to the patient with regard to undergoing surgical revascularization. The patient was seen by Dr. Yu in consultation and did consent to the procedure. On March 03, 2017, the patient presented to the operative suite for coronary artery bypass grafting x3 with a left internal mammary artery bypass to the distal LAD, reverse saphenous vein graft to the diagonal, reverse saphenous vein graft to the obtuse marginal. The patient tolerated the surgery without complication and transferred up to the ICU following the procedure. He was intubated upon transfer and easily extubated within a couple hours after the procedure. On postoperative day #1, the patient was found stable to transfer from the ICU to the progressive care floor. His lines and drips were discontinued. He worked with cardiac rehab during the postoperative phase. The patient has a history of significant diabetes mellitus and his diabetic medications were optimized. His chest tubes, pacemaking wires, and Abdalla catheter were discontinued in the routine postoperative timeframe. The patient had no healing complications. He had no runs of postoperative atrial fibrillation. His cardiac medications were optimized. He and his did speak with care management for any needs at the time of discharge. There were no needs identified and the patient was found stable to discharge to home on 03/09/2017. DISCHARGE ORDERS: ADA 2000 calorie diet. Activity levels as per the open heart surgery discharge summary sheet, which requires no pulling, pushing, or lifting heavier than 10 pounds for 6 weeks from the day of surgery. The patient was asked to follow with Dr. Yu and Dr. Sheridan in 2 weeks on the same day. He was also scheduled in to see Dr. Waterman for a followup. He will be contacted by cardiac rehab for outpatient therapy. DISCHARGE MEDICATIONS: 1. Invokamet 100/1000 mg tablets one tablet twice a day. PATIENT'S NAME: RORY CORBIN [facility] AGE: 57 Y [address] ROOM: [place] [address] LOCATION: GPCU ADMIT DATE: 03/01/2017 Discharge Summary DISCHARGE DATE: 03/09/2017 FAMILY PHYSICIAN: Efren Waterman MD ATTENDING PHYSICIAN: Hosea Yu 2. Tresiba insulin 20 units subcutaneously at bedtime. 3. Flexeril 10 mg at bedtime. 4. Victoza 1.8 mg subcu daily. 5. Vitamin B12 500 mcg p.o. daily. 6. Vitamin B6 100 mg daily. 7. Fiber gummies 2 tablets daily. 8. Amaryl 2 mg daily. 9. Cozaar 50 mg at bedtime. 10. Vitamin C 500 mg daily. 11. Lipitor 80 mg daily. 12. Aspirin 81 mg daily. 13. Coreg 12.5 mg b.i.d. 14. Brilinta 90 mg twice a day. FINAL DIAGNOSES: 1. Coronary artery disease. 2. Diabetes mellitus type 2. 3. Hypertension. 4. Dyslipidemia. The patient and verbalized understanding of the discharge orders. The patient was discharged to home in stable condition. EFRAIN DOMÍNGUEZ APRN FOR DO KATHY GIFFORD/durgal /[id number] d: 04/04/17 0142 t: 04/04/17 1554, DISCHARGE SUMMARY
--- NOTE | ~2017-03-01 | CON ---
PATIENT'S NAME: RORY CORBIN [facility] AGE: 56 Y [address] ROOM: [place] [address] LOCATION: GPCU ADMIT DATE: 03/01/2017 Consultation DISCHARGE DATE: FAMILY PHYSICIAN: Efren Waterman MD ATTENDING PHYSICIAN: Mary Rangel DATE OF CONSULTATION: 03/01/2017 REFERRING PHYSICIAN: Hosea Viera DO REQUESTING PHYSICIAN: Mary Rangel MD REASON FOR CONSULTATION: Coronary artery disease. HISTORY OF PRESENT ILLNESS: The patient is a 56-year-old white male, who presented to the emergency room here at [facility] as a code STEMI on February 20, 2017. The patient's symptoms were significant for bilateral jaw pain as well as bilateral shoulder pain. The patient went emergently to the cardiac cath unit with Dr. Rangel. Findings were for a 100% occluded RCA and chronic occluded apical LAD with [id number] collaterals with the midportion being at 75% and the distal at 100% and a proximal left circumflex at 50%. During the said procedure, Dr. Rangel was able to successfully place a drug-eluting stent to the RCA with no further chest discomfort. The patient was started on Brilinta. He had an overnight stay following the procedure with anticipation to return today on March 01, 2017, for further planned percutaneous intervention. The patient did present for placement of a stent to the LAD, however, the patient's vascular anatomy would not allow stent placement and therefore Dr. Viera was asked to see the patient in consultation for coronary artery bypass grafting. PAST MEDICAL HISTORY: Illnesses: Hypertension, dyslipidemia, diabetes mellitus type 2 with both insulin and oral use. Surgery/procedures: Right knee scope; right ACL repair; right shoulder surgery; colonoscopy; tonsillectomy; liver biopsy; and fatty tumor removal, the patient's head. ALLERGIES: PENICILLIN. SOCIAL HISTORY: PATIENT'S NAME: RORY CORBIN [facility] AGE: 56 Y [address] ROOM: [place] [address] LOCATION: GPCU ADMIT DATE: 03/01/2017 Consultation DISCHARGE DATE: FAMILY PHYSICIAN: Efren Waterman MD ATTENDING PHYSICIAN: Mary Rangel The patient is . He and his reside in [place]. He has grown children. He is a lifetime nonsmoker and an occasional alcohol consumer. FAMILY HISTORY: His mother's history is significant for diabetes mellitus as well as congestive heart failure. She also had Alzheimer's. His father from an aortic tear. His brother had thyroid cancer. MEDICATIONS: Include: 1. Tylenol 650 mg q.4 hours p.r.n. 2. Vitamin C 500 mg daily. 3. Aspirin 81 mg daily. 4. Lipitor 80 mg daily. 5. Invokamet 150/1000 one p.o. b.i.d. 6. Coreg 12.5 mg b.i.d. 7. Vitamin B12 500 mcg daily. 8. Flexeril 10 mg at bedtime. 9. Amaryl 2 mg daily. 10. Tresiba FlexPen 20 units of insulin subcu at bedtime. 11. Fiber gummies two tabs daily. 12. Victoza 1.8 mg subcu daily. 13. Cozaar half of a 50 mg tablet daily at bedtime. 14. Vitamin B6 100 mg daily. 15. Brilinta 90 mg b.i.d. SYSTEM REVIEW: GENERAL: The patient really has not had any change in weight or appetite. No fever, chills, or sweats. No excessive fatigue. The patient had been feeling good up until February 19, whereby he started having some of the jaw discomfort and it was alleviated with an aspirin. On the , he had further complications which led him to the emergency department and to his present status. HEENT: No complaints of vision issues at this time. He does wear glasses. No hearing complaints. He does have some difficulty swallowing at times. No hoarseness of his voice. RESPIRATORY: No unusual cough or wheezing. He has not been experiencing any shortness of breath, PND, DONG. There is no known obstructive sleep apnea. CARDIOVASCULAR: The patient has just returned from the catheterization lab. His planned stent placement was aborted. He has had some mild chest discomfort. He is currently on heparin and nitroglycerin drip. He is resting comfortably at this time with no complaints. He has no history of intermittent claudication or lower extremity edema. GI: No nausea, vomiting, constipation, or diarrhea that is persistent. No complaints of GERD like symptoms. PATIENT'S NAME: RORY CORBIN [facility] AGE: 56 Y [address] ROOM: [address] [place], [place] [address] LOCATION: GPCU ADMIT DATE: 03/01/2017 Consultation DISCHARGE DATE: FAMILY PHYSICIAN: Efren Waterman MD ATTENDING PHYSICIAN: Mary Rangel : Has a history of nephrolithiasis. Some urinary urgency. MUSCULOSKELETAL: Does have some chronic neck pain. Does not require ambulatory devices. NEUROLOGIC: No frequent or severe headaches. No history of seizures, memory loss, or syncope. Does have peripheral neuropathy. PSYCHIATRIC: No psychiatric or psychiatric treatment history. ENDOCRINE: Does have a history of diabetes. He is on oral agents as well as insulin. His last hemoglobin A1c was February 21, 2017, and was at 9.9. INTEGUMENT: No known skin diseases. PHYSICAL EXAMINATION: VITAL SIGNS: Blood pressure 131/87, pulse 71, respirations 16, temp 98.1, O2 saturations 95% on room air. Height is 172.7 cm, weight is 86.6 kg. GENERAL: The patient is pleasant. He has just returned from the catheterization lab. His family are present at the bedside. He is in no acute distress. He appears to be normal stated age. HEENT: Normocephalic with EOMs intact. Conjunctivae clear. NECK: No palpable lymphadenopathy or thyromegaly. LUNGS: Clear to auscultation to the anterior. CARDIOVASCULAR: Regular rate and rhythm. ABDOMEN: Soft, nontender by 4 quadrants with positive bowel sounds throughout. EXTREMITIES: No overt varicosities or edema. NEUROLOGIC: Alert and oriented. Strength is symmetrical. SKIN: No suspicious skin lesions. LABORATORY AND TEST RESULTS: His P2Y12 is measured at 6. CBC: White blood cell count is 8.1, hemoglobin 16.0, hematocrit 47.1, and platelets 229. INR is 1.07. He had an echocardiogram on February 21, 2017. The ejection fraction measured out at 70% to 75% with mild asymmetric septal left ventricular hypertrophy. There were no valvular abnormalities noted. His cardiac catheterization is as per HPI. IMPRESSION: 1. Coronary artery disease, not amenable to further stent placement. 2. Diabetes mellitus type 2. 3. Dyslipidemia. 4. Hypertension. RECOMMENDATION AND PLAN: Dr. Viera spoke to the patient and his family with regard to surgical revascularization. The risks and benefits of the procedure were discussed. Discussion of the risks includes but was not limited to bleeding requiring transfusion or return to the operative suite, myocardial infarction, cerebrovascular accident, renal and/or pulmonary failure. Also discussed were PATIENT'S NAME: RORY CORBIN [facility] AGE: 56 Y [address] ROOM: [place] [address] [facility] AD[facility] DATE: 03/01/2017 Consultation DISCHARGE DATE: FAMILY PHYSICIAN: Efren Waterman MD ATTENDING PHYSICIAN: Mary Rangel arrhythmias and infection as well as operative and postoperative mortality. Per the review of the catheterization films, the patient will need a bypass to the LAD as well as bypass to the marginal. Therefore, we will plan for 2- vessel bypass. The RCA looked good on the studies this morning and no intervention is further required. The patient does consent to proceed with surgery. We will plan for March 04, 2017. We would like to thank Dr. Rangel for allowing us to participate in this pleasant gentleman's case. EFRAIN DOMÍNGUEZ APRN FOR HOSEA VIERA, DLQ/modl /[id number] d: 03/01/17 1514 t: 03/13/17 1203, CONSULTATION REPORT
--- NOTE | ~2017-03-01 | ENPV ---
Vascular Lower Extremity Vein Mapping Procedure Demographics Patient Name RORY CORBIN Date of Study 03/01/2017 Patient Number [id number] Gender Male Date of 1960 Age 56 Visit Number [id number] Height 68 Weight 197.[address] [facility] Efren Kyle MD Interpreting Juan Carlos Albert Physician Juan Carlos Albert Physician A MD Anabella MAGANA Physician Ordering Marytrajimyou Ricardoayotis Acute Care Assistant Physician A Spike Maker Thomas Loja RVT Conclusions Summary Bilateral greater saphenous vein are patent and suitable for grafting Procedure Type of Study: Veins:Lower Extremity Vein Mapping, Vein Mapping. Indications for Study:Pre-op CABG and Pre-op for vein harvesting. Appropriate Use Criteria:7 Allergies - Penicillin. Patient Status:Routine. Study Location:Inpatient Portable. Technical Quality:Adequate visualization. Risk Factors - The patient's risk factor(s) include: insulin-treated diabetes mellitus, dyslipidemia, treated arterial hypertension and prior AR . - The patient's last creatinine was 0.6 mg/dl. Velocities are measured in cm/s ; Diameters are measured in cm + ++--------++--------+ !Superficial - Great Saphenous Vein !!Right !!Left ! + ++--------++--------+ !Location !!Diameter!!Diameter! + ++--------++--------+ !Sapheno Femoral Junction !!0.38 !!0.39 ! + ++--------++--------+ !GSV High Thigh !!0.38 !!0.33 ! + ++--------++--------+ !GSV Mid Thigh !!0.33 !!0.28 ! + ++--------++--------+ !GSV Low Thigh !!0.27 !!0.28 ! + ++--------++--------+ !GSV Knee !!0.28 !!0.29 ! + ++--------++--------+ !GSV High Calf !!0.23 !!0.23 ! + ++--------++--------+ !GSV Mid Calf !!0.18 !!0.17 ! + ++--------++--------+ !GSV Low Calf !!0.21 !!0.25 ! + ++--------++--------+ Signature dtt: Mary Rangel dtd: 03/01/17 1116 Physician Self Edit
--- NOTE | ~2017-03-01 | OR ---
PATIENT'S NAME: RORY CORBIN [facility] AGE: 56 Y [address] ROOM: [place] [address] LOCATION: GPCU ADMIT DATE: 03/01/2017 OR/Procedure Report DISCHARGE DATE: 03/09/2017 FAMILY PHYSICIAN: Efren Waterman MD ATTENDING PHYSICIAN: Mary Rangel SURGEON: Jose Guerrero MD HAND SEWER SHOES: DATE OF PROCEDURE: 03/04/2017 PROCEDURE: 1. Insertion of central venous catheter. 2. Insertion of arterial line. INDICATION FOR PROCEDURE: Intraoperative hemodynamic monitoring and access. PROCEDURE IN DETAIL: After a brief time-out was completed verifying the correct patient, procedure, site, the patient was placed in dependent position appropriate for central line placement. The patient's right neck prepped and draped in the usual sterile fashion and 2 mL of 1% lidocaine used to anesthetize surrounding skin. Using the Seldinger technique and under real- time ultrasound guidance, a 9-Micronesian 10 cm was introduced to the patient's internal jugular vein. The guidewire then was removed. Each lumen catheter was evacuated from air and then flushed with sterile saline. The catheter then was sutured into place and a sterile Tegaderm was applied. Next, attention was made to the patient's right wrist, which was prepped and draped in the usual sterile fashion and 1 mL of 1% lidocaine was used to anesthetize the surrounding skin. Using the Seldinger technique, a 20-gauge Arrow catheter was used to insert into the patient's right radial artery. The guidewire then was removed. The catheter was sutured in place and sterile Tegaderm was applied. Pulses at the distal insertion of the catheter were checked and found to be adequate. The patient tolerated the both procedures well. There were no procedural complications. JOSE GUERRERO MD FAY/modl /[id number] d: 03/13/17 2253 t: 04/03/17 1125, OPERATIVE SUMMARY
--- NOTE | ~2017-03-01 | OR ---
PATIENT'S NAME: RROY FRAGA [facility] AGE: 56 Y [address] ROOM: [address] [address] LOCATION: GPCU ADMIT DATE: 03/01/2017 OR/Procedure Report DISCHARGE DATE: 03/09/2017 FAMILY PHYSICIAN: Efren Waterman MD ATTENDING PHYSICIAN: Mary Rangel SURGEON: Hosea Yu DO ASSEMBLY OPERATOR: DATE OF PROCEDURE: 03/03/2017 PREOPERATIVE DIAGNOSES: 1. Multivessel coronary artery disease. Secondary diagnosis include a recent ST-segment elevation myocardial infarction on February 20. 2. Hypertension. 3. Dyslipidemia. 4. Diabetes. POSTOPERATIVE DIAGNOSES: 1. Multivessel coronary artery disease. Secondary diagnosis include a recent ST-segment elevation myocardial infarction on February 20. 2. Hypertension. 3. Dyslipidemia. 4. Diabetes. PROCEDURE PERFORMED: Coronary artery bypass grafting x3 with left internal mammary artery bypass to the distal LAD, reverse saphenous vein bypass to the diagonal, reverse saphenous vein bypass to the obtuse marginal. REFERRING PHYSICIAN: Dr. Rangel. BRIEF HISTORY: Mr. Fraga is a 56-year-old, white male, who on February 20 was presented to [facility] as a code STEMI. He was taken to the coronary orthodontic lab technician and found to have multivessel coronary disease with a 100% occluded RCA, chronically occluded apical LAD with [id number] collaterals, and proximal circumflex was 70%. At that time, Dr. Rangel stented the right coronary system, placed the patient on Brilinta. He was discharged to home and then returned today for attempted opening of the chronic total occlusion of the LAD. However, this was not successful and we were asked to see him in regard to surgical revascularization. DESCRIPTION OF PROCEDURE: He has been brought to the operative suite today after informed consent was obtained for bypass. He was sterilely prepped and draped in the usual fashion for a surgical revascularization and sternotomy. A sternal incision was made. The sternum was divided in the midline with sternal saw. Concurrently to this, saphenous vein was harvested endoscopically from the lower extremity. It should be noted that his radial PATIENT'S NAME: RORY FRAGA [facility] AGE: 56 Y [address] ROOM: [id number] [place], [place] [address] LOCATION: GPCU ADMIT DATE: 03/01/2017 OR/Procedure Report DISCHARGE DATE: 03/09/2017 FAMILY PHYSICIAN: Efren Waterman MD ATTENDING PHYSICIAN: Mary Rangel arteries were tested; he was found not to be a suitable candidate for radial artery harvest. The sternal edges and marrow edges were made hemostatic with Jyotsna and electrocautery. Mammary retractor was placed and left internal mammary artery was harvested in standard fashion with surgical clips and electrocautery and the patient was then fully heparinized. The mammary was then divided and prepared for bypass. Mammary retractor was removed and a sternal retractor was placed. Pericardium was opened. Pericardial wall was created and cannulation sutures were placed in the ascending aorta and right atrium for bypass and cardioplegic cannulas, and the patient was cannulated and connected to bypass pump without difficulty. The vein was then prepared for bypass. An adequate ACT had been achieved, cardiopulmonary bypass was initiated. Crossclamp was applied. Antegrade and retrograde cardioplegia was given along with topical cold saline for cardiac arrest. The heart arrested nicely. Obtuse marginal was identified and opened. End-to-side vein graft anastomosed to this with 7-0 Prolene. It was sized appropriately and connected to the cardioplegia system. Another 500 mL of vein graft and retrograde cardioplegia was given. This was done after each venous distal anastomosis. Similar venous distal anastomosis was then created to the diagonal in an effort to supply the upper LAD system proximal to the 100%; there was another 75% to 80%, it was deeply intramyocardial at this point, and the diagonal was chosen to revascularize the proximal portion of the LAD system. The distal LAD was then dissected free and the mammary reached this without difficulty and an end-to-side anastomosis was then placed from the internal mammary to the LAD. With this completed, the bulldog was removed from the internal mammary and an intact anastomosis was noted. Crossclamp was now removed and a partial occlusion clamp was applied. Warm blood was now initiated via the vein grafts and via the retrograde cannula and we performed our proximal anastomosis with 4-0 punch and 6-0 Prolene. During this time period, sinus rhythm also returned. The partial occlusion clamp was removed, vein grafts were de-aired, bulldog was removed, and distal flow was given. Distal sites were hemostatic. Proximal sites were hemostatic. Warm blood was discontinued and retrograde cannula was removed. Ventilations were initiated and we weaned from cardiopulmonary bypass without difficulty. Venous cannula was removed. Appropriate volume returned from the pump to the patient. The ascending aortic cannula was removed and protamine was given. We then placed 3 chest tubes, one left pleural, one posterior pericardial, one anterior mediastinal. Copious amounts of antibiotic-infused saline was used to irrigate the sternum, mediastinum, and sternum was approximated with ZipFix system. Soft tissues were then irrigated again and closed in layered fashion. All sponge, instrument, and needle counts were correct and the patient was transferred to the intensive care unit in stable condition. PATIENT'S NAME: RORY FRAGA [facility] AGE: 56 Y [address] ROOM: [place] [address] LOCATION: GPCU ADMIT DATE: 03/01/2017 OR/Procedure Report DISCHARGE DATE: 03/09/2017 FAMILY PHYSICIAN: Efren Waterman MD ATTENDING PHYSICIAN: Mary Rangel DO MCB/nichole /[id number] d: 03/19/17 1308 t: 03/20/17 0754, OPERATIVE SUMMARY
[~2017-03-01 06:13] MED LIST: AMARYL2 MG PO; ASCORBIC ACID500 MG PO; ASPIRIN EC81 MG PO; BRILINTA90 MG PO; COREG12.5 MG PO; COZAAR100 MG PO; FIBER GUMMIES1 EACH PO; FLEXERIL10 MG PO; INVOKAMET 150-1 EACH PO; LIPITOR80 MG PO; PRAVACHOL80 MG PO; TRESIBA FL100 UNIT/1 SUB-Q; TYLENOL325 MG PO; VICTOZA 2-0.6 MG/0.1 SUB-Q; VITAMIN B-12500 MCG PO; VITAMIN B-6100 MG PO
[2017-03-01 11:00] LABS: BASOPHIL % 0.4 %; EOSINOPHIL # 0.3 K/uL (0.0-0.5); EOSINOPHIL % 3.3 %; HEMATOCRIT 47.1 % (37.0-53.0); IMMATURE GRANULOCYTE % 0.2 %; LYMPHOCYTE # 1.6 K/uL (0.8-4.0); LYMPHOCYTE % 19.5 %; MCH 29.6 pg (27.0-34.0); MCV 87.1 fl (83.0-98.0); MONOCYTE # 0.9 K/uL (0.0-1.0); MPV 10.8 fl (9.4-12.4); NEUTROPHIL # (ANC) 5.3 K/uL (1.4-9.0); NEUTROPHIL % 65.6 %; NRBC % 0 /100WBC (0-0.00); PLATELET COUNT 229 K/uL (150-450); RBC 5.41 M/uL (4.00-6.00); RDW-CV 13.4 % (11.9-14.6); WBC 8.1 K/uL (4.0-11.0)
[2017-03-01 11:12] LABS: INR - (THERAPEUTIC) 1.07 (0.92-1.07); PROTIME 11.2 SECONDS (9.8-11.4)
[2017-03-01 11:13] LABS: PTT 81 SECONDS (25-32)
--- NOTE | 2017-03-01 16:50 | NUR ---
Significant Event: VSS AND RA. FROM HAT SPRAYER THIS AM, RT)RADIAL SITE REMAINS SOFT AND C/D/I; BANDAID AND COBAN ON. CABG CONSULT; TO HAVE ON SATURDAY. VEIN MAPPING AND CAROTID DOPPLARS DONE. AMBULATES IN LOU X2 LAPS. VOIDS WITH ADEQUATE UOP. HEPARIN GTT PER PROTOCOL-NEXT PTTHP AT 1800, NITRO GTT CONTINUES AT 5 MCGS. DENIES CP WHILE ON FLOOR. Follow up: CONTINUE PLAN OF CARE.
--- NOTE | 2017-03-02 05:28 | NUR ---
Significant Event: R) RADIAL SOFT WITH BRUISING. NO DRAINAGE NOTED. HAD 1 EPISODE OF CHEST PAIN AFTER HE RETURNED FROM THE BATHROOM. AFTER HE RESTED FOR A SHORT TIME, THE PAIN WENT AWAY. HE REMAINS ON NITRO 5MCG AND HEPARIN CURRENTLY AT 1200 UNITS/HR. BP HAS BEEN STABLE ALL NIGHT. HAS HAD A SMALL AMOUNT OF BLOOD FROM HIS NOSE OFF AND ON THROUGHOUT THE NIGHT. HAS HAD NO TROUBLE WITH STOPPING THE BLEEDING. Follow up:
--- NOTE | 2017-03-02 16:44 | NUR ---
PATIENT A&0X3. VITAL SIGNS STABLE. NITRO CONTINUES AT 5MG AND HEPARIN AT 1200 UNITS/HR. PATIENT DENIES ANY PAIN. PATIENT HAS BEEN AMBULATING IN THE LOU X5 LAPS. FAMILY AND FRIENDS AT BEDSIDE. PATIENT HAS AN ORDER TO VISIT GRANDCHILDREN IN THE LOBBY. R) FOREARM BRUISED, SOFT, AND NONTENDER. FOLLOW UP: CABG ON SATURDAY
--- NOTE | 2017-03-03 04:24 | NUR ---
A/O. HR 70s. SBP 120s. ROOM AIR. AFEBRILE. TYLENOLx1 FOR PAIN IN R) ARM AFTER BLOOD DRAW. INDEPENDENT IN ROOM. NO BM. NITRO AT 5 MCG/HR. HEPARIN AT 1200 UNITS/HR. NEXT PTTHP AT 1100. PLAN FOR CABG SATURDAY.
[2017-03-03 11:07] LABS: BILIRUBIN URINE NEGATIVE (NEGATIVE); BLOOD URINE NEGATIVE /UL (NEGATIVE); COLOR URINE YELLOW (YELLOW); GLUCOSE URINE 1000 mg/dL (NEGATIVE); KETONE URINE 15 mg/dL (NEGATIVE); LEUKOCYTES URINE NEGATIVE /UL (NEGATIVE); NITRITE URINE NEGATIVE (NEGATIVE); PROTEIN URINE NEGATIVE (NEGATIVE); TURBIDITY URINE CLEAR (CLEAR); UROBILINOGEN URINE NORMAL (NORMAL)
[2017-03-03 11:34] LABS: ALBUMIN 3.5 gm/dL (3.5-5.0); ALK PHOS 99 IU/L (33-138); ALT 76 IU/L (12-78); BLOOD UREA NITROGEN 15 mg/dL (6-24); CALCIUM 8.3 mg/dL (8.5-10.5); CHLORIDE 108 mMol/L (96-110); CO2 26 mMol/L (22-32); CREATININE 0.7 mg/dL (0.6-1.3); ESTIMATED GFR (MDRD EQUATION) > 60; SODIUM 140 mMol/L (135-145); TOTAL PROTEIN 6.9 g/dL (6.0-8.4)
[2017-03-03 11:35] LABS: ANION GAP 9.9 (10.0-19.0); AST 60 IU/L (10-40); POTASSIUM 3.9 mMol/L (3.7-5.1); TOTAL BILIRUBIN 0.3 mg/dL (0.0-1.5)
--- NOTE | 2017-03-03 17:26 | NUR ---
PT A&Ox3. VITAL SIGNS STABLE. PATIENT COMPLAINED OF CHEST PAIN AND NITRO DOSE WAS INCREASE TO 10MCG. PATIENT ACCIDENTALLY DISLODGED TWO IVS TODAY. 3RD IV WAAS STARTED IN R) FOREARM. SMALL BM THIS MORNING. 3000 UNIT HEPARIN BOLUS GIVEN AND RATE WAS INCREASED TO 1400 UNITS/HR. NEXT PTTHP AT 1800. PATIENT HAD LOTS OF VISITORS TODAY. FOLLOW UP: CABG IN THE AM
[2017-03-04 03:23] LABS: BASOPHIL % 0.3 %; EOSINOPHIL # 0.5 K/uL (0.0-0.5); EOSINOPHIL % 4.1 %; HEMATOCRIT 42.6 % (37.0-53.0); HEMOGLOBIN 14.5 g/dL (12.0-17.0); IMMATURE GRANULOCYTE % 0.3 %; LYMPHOCYTE # 2.6 K/uL (0.8-4.0); LYMPHOCYTE % 23.2 %; MCH 29.8 pg (27.0-34.0); MCV 87.5 fl (83.0-98.0); MONOCYTE # 1.2 K/uL (0.0-1.0); MONOCYTE % 11.1 %; MPV 10.7 fl (9.4-12.4); NEUTROPHIL # (ANC) 6.8 K/uL (1.4-9.0); NRBC % 0 /100WBC (0-0.00); PLATELET COUNT 214 K/uL (150-450); RBC 4.87 M/uL (4.00-6.00); RDW-CV 13.5 % (11.9-14.6); WBC 11.1 K/uL (4.0-11.0)
--- NOTE | 2017-03-04 04:13 | NUR ---
A/O. HR 70-80s. SBP 100-120s. ROOM AIR. AFEBRILE. NITRO AT 5 MCG/MIN. HEPARIN D/C AT 0200. BICARB NOW RUNNING AT 50 ML/HR. DENIES CHEST PAIN. SHOWER AND CABG PREP LAST NIGHT. NO BM. VOIDS PER URINAL. UP INDEPENDENTLY. CABG CHECKLIST COMPLEATED.
[2017-03-04 15:44] LABS: MCH 30.1 pg (27.0-34.0); MCV 88.3 fl (83.0-98.0); MPV 11.1 fl (9.4-12.4); RBC 3.75 M/uL (4.00-6.00); RDW-CV 13.7 % (11.9-14.6); WBC 13.8 K/uL (4.0-11.0)
[2017-03-04 15:45] LABS: HEMATOCRIT 33.1 % (37.0-53.0); HEMOGLOBIN 11.3 g/dL (12.0-17.0); MCHC 34.1 gm/dL (32.0-36.5); PLATELET COUNT 131 K/uL (150-450)
[2017-03-04 15:52] LABS: PROTIME 13.8 SECONDS (9.8-11.4)
[2017-03-04 15:53] LABS: INR - (THERAPEUTIC) 1.31 (0.92-1.07)
[2017-03-04 15:54] LABS: PTT 30 SECONDS (25-32)
[2017-03-04 16:22] LABS: ALPHA ANGLE 72 degrees (70-81); CLOTTING TIME 69 seconds (43-82); MAXIMUM CLOT FIRMNESS 59 mm (51-72)
[2017-03-04 16:25] LABS: BICARBONATE 25.6 mmol/L (18.0-23.0); PCO2 40 mmHg (35-45); PO2 421 mmHg (80-90); SODIUM 141 mEq/L (135-145)
[2017-03-04 16:26] LABS: POTASSIUM 3.8 mEq/L (3.7-5.1)
[2017-03-04 16:28] LABS: BICARBONATE 28.4 mmol/L (18.0-23.0); PCO2 44 mmHg (35-45); PO2 292 mmHg (80-90); POTASSIUM 4.6 mEq/L (3.7-5.1); SODIUM 139 mEq/L (135-145)
[2017-03-04 16:29] LABS: BICARBONATE 27.5 mmol/L (18.0-23.0); PCO2 46 mmHg (35-45); PO2 273 mmHg (80-90); POTASSIUM 4.7 mEq/L (3.7-5.1); SODIUM 139 mEq/L (135-145)
[2017-03-04 16:30] LABS: BICARBONATE 27.2 mmol/L (18.0-23.0); PCO2 47 mmHg (35-45); PO2 357 mmHg (80-90); POTASSIUM 3.8 mEq/L (3.7-5.1); SODIUM 141 mEq/L (135-145)
[2017-03-04 16:48] LABS: BICARBONATE 26.3 mmol/L (18.0-23.0); PCO2 37 mmHg (35-45); PO2 105 mmHg (80-90)
[2017-03-04 16:57] LABS: ANION GAP 11.9 (10.0-19.0); BLOOD UREA NITROGEN 10 mg/dL (6-24); CALCIUM 8.2 mg/dL (8.5-10.5); CHLORIDE 111 mMol/L (96-110); CO2 25 mMol/L (22-32); CREATININE 0.6 mg/dL (0.6-1.3); ESTIMATED GFR (MDRD EQUATION) > 60; POTASSIUM 3.9 mMol/L (3.7-5.1); SODIUM 144 mMol/L (135-145)
--- NOTE | 2017-03-04 17:46 | NUR ---
D: CABG I: ALB/EZPAP, IS/FV R: PT WAS PLACED INTO CPAP 5/8 RIGHT AWAY & TOLERATED WELL, EXTUBATED PT @ 17:25 TO A 4 LPM NC, TOLERATING WELL, ALB/EZPAP/IS/FV WILL BE NEW FOR NOCS P: CONT TO WEAN O2
--- NOTE | 2017-03-04 20:11 | NUR ---
Significant Event: To floor from OR at 1611, extubated at 1725 to 4L NC. Spo2 >95%.. Lungs ascultated clear-clear/diminished. CTx4, sanguineous draining. Mediastinal had 154ml out and pleural 50ml out. SR with HR 60-70's. SBP 90-160's, titrated to max Nitro of 70mcg/min and currently titrated to off. Gave 500ml albumin x1, cvp7-11. CI 1.1-2.7, CO 4-5. Amio gtt per protocol. Insulin gtt per protocol. Atrial and ventriclular wires capped and taped to chest. Replacing 40meq KCL. Rare-hypoactive bowel sounds. Denies Nausea. Gave PRN [place] [id number] and PRn 2mg morphine x1. Up to chair. Follow up:recheck K level when kcl done infusing.
[2017-03-05 04:04] LABS: BICARBONATE 29.2 mmol/L (18.0-23.0); PCO2 43 mmHg (35-45); PO2 67 mmHg (80-90)
[2017-03-05 04:24] LABS: ANION GAP 10.1 (10.0-19.0); BLOOD UREA NITROGEN 9 mg/dL (6-24); CHLORIDE 107 mMol/L (96-110); CO2 27 mMol/L (22-32); CREATININE 0.6 mg/dL (0.6-1.3); ESTIMATED GFR (MDRD EQUATION) > 60; POTASSIUM 4.1 mMol/L (3.7-5.1); SODIUM 140 mMol/L (135-145)
[2017-03-05 04:30] LABS: HEMATOCRIT 36.6 % (37.0-53.0); HEMOGLOBIN 12.5 g/dL (12.0-17.0); MCH 30.3 pg (27.0-34.0); MCHC 34.2 gm/dL (32.0-36.5); MCV 88.6 fl (83.0-98.0); MPV 11.5 fl (9.4-12.4); RBC 4.13 M/uL (4.00-6.00)
[2017-03-05 04:34] LABS: WBC 19.4 K/uL (4.0-11.0)
--- NOTE | 2017-03-05 07:18 | NUR ---
Significant Event: PATIENT ALERT AND ORIENTED X3. CHEST TUBE X4. WOUND VAC TO STERNAL INCISION. RIGH IJ WITH AMIO GTT PER PROTOCOL, BICARB GTT PER PROTOCOL, INSULIN GTT PER PROTOCOL. STARTED ON MORPHINE CLINICAL MENTAL HEALTH COUNSELOR. WEEKS WITH ADEQUATE UOP. NO BM. LEFT RADIAL ARTLINE. PIV X2. ON 1 L PER NASAL CANNULA. Follow up:TRANSFER TO PCU
--- NOTE | 2017-03-05 10:01 | NUR ---
CONSULT RECEIVED, PER ROUTINE CABG ORDERS. IF APPROPRIATE, POST-CABG DIET ED WILL BE COMPLETED PRIOR TO DISCHARGE.
--- NOTE | 2017-03-05 12:00 | NUR ---
Introduced self and role of care management to patient and his . They live in [place]. He hopes to go home when ready for discharge. Does not anticipate discharge needs at this time. Will follow.
--- NOTE | 2017-03-05 19:12 | NUR ---
Significant Event: AAox3, denies N/T. Pupils 3mm brisk. Follows commands and moves spontaneously. Systolic 110-130's, HR 70-80's, no ectopy, absent edema, 2+ pulses throughout. L.S. clear and diminished in lower lobes on 1L via N.[place]. EtCo2 monitoring d/t CHEESEMAKER HELPER Morphine. B.S. hypoactive, last BM 03/02. Abdalla intact adequate urine output. CT mediastinum 200 out, pleural 80, both serosangenous in color. D/C'd arterial/R) IJ quad lumen at 1045 this AM. Cardiac diet/ADA 2000mL fluid restriction. Up 2PA, steady with gait. Follow up: Transfered to PCU at 1415, patient ambulated with nurses and aide to the floor with assistance, report given to
[2017-03-06 04:14] LABS: HEMATOCRIT 37.7 % (37.0-53.0); MCH 30.7 pg (27.0-34.0); MCHC 31.8 gm/dL (32.0-36.5); MPV 10.5 fl (9.4-12.4); RBC 3.91 M/uL (4.00-6.00); RDW-CV 14.3 % (11.9-14.6)
[2017-03-06 04:20] LABS: MCV 96.4 fl (83.0-98.0); WBC 19.9 K/uL (4.0-11.0)
[2017-03-06 04:32] LABS: ANION GAP 9.6 (10.0-19.0); BLOOD UREA NITROGEN 6 mg/dL (6-24); CHLORIDE 101 mMol/L (96-110); CO2 29 mMol/L (22-32); CREATININE 0.6 mg/dL (0.6-1.3); ESTIMATED GFR (MDRD EQUATION) > 60; POTASSIUM 3.6 mMol/L (3.7-5.1); SODIUM 136 mMol/L (135-145)
--- NOTE | 2017-03-06 05:15 | NUR ---
Significant Event: A/O x3. Afebrile. Denies pain. VSS on 2L. Dialysis catheter left chest, saturated with old blood. Up in chair most of night. Cooperative with cares. Follow up: Dialysis this am.
--- NOTE | 2017-03-06 05:17 | NUR ---
Significant Event: A/O x3. 99.2-101 temps. Gave norco x3. Anxious at times. Pain in left leg and chest surgical site. [employer]ER [employer] morphine demand only, 9 demands, 8 demands delivered. 8mg morphine total. Insulin gtt running, hourly blood sugar checks. Repo q 2 hours. Pt uses IS frequently. 1-2L o2 during night. Follow up: Continue to monitor per plan of care.
--- NOTE | 2017-03-06 12:45 | NUR ---
PT SCREENED D/T LOS. EST NEEDS: [id number] KCALS, 95 GM PROTEIN, FLUIDS RESTRICTED. INTAKE 50-100%. NO NUTRITION-RELATED DX IDENTIFIED. WILL COMPLETE CABG DIET ED PRIOR TO DISMISSAL AND ASSIST NEEDED.
--- NOTE | 2017-03-06 17:04 | NUR ---
Significant Event: PATIENT A&Ox3 BUT DROWSY ALL DAY. MEDIASTINAL CHEST TUBE DISCONTINUED. PLEURAL CHEST TUBE TO BLAISE DRAIN. INSULIN DRIP DISCONTINUED. PATIENT ON MORPHINE DISTRIBUTED ENERGY SYSTEMS CONSULTANT. 13 ATTEMPTS WITH 11 DELIVERIES. PATIENT CONTINUES ON 2L OF OXYGEN VIA NC. IV BUMEX GIVEN 1X. WEEKS DISCONTINUED AT 1700. PATIENT AMBULATED IN LOU 2X TODAY. NORCO GIVEN 2X LAST DOSE AT 1215. Follow Up: CONTINUE WITH PLAN OF CARE.
[2017-03-07 04:18] LABS: HEMATOCRIT 35.8 % (37.0-53.0); HEMOGLOBIN 12.1 g/dL (12.0-17.0); MCH 30.2 pg (27.0-34.0); MCHC 33.8 gm/dL (32.0-36.5); MPV 10.8 fl (9.4-12.4); RBC 4.01 M/uL (4.00-6.00); RDW-CV 13.8 % (11.9-14.6)
[2017-03-07 04:19] LABS: MCV 89.3 fl (83.0-98.0); WBC 18.2 K/uL (4.0-11.0)
[2017-03-07 04:33] LABS: ALBUMIN 2.7 gm/dL (3.5-5.0); ANION GAP 10.9 (10.0-19.0); CALCIUM 8.2 mg/dL (8.5-10.5); CHLORIDE 99 mMol/L (96-110); CO2 29 mMol/L (22-32); CREATININE 0.7 mg/dL (0.6-1.3); ESTIMATED GFR (MDRD EQUATION) > 60; PHOSPHORUS 2.7 mg/dL (2.5-4.9); POTASSIUM 3.9 mMol/L (3.7-5.1); SODIUM 135 mMol/L (135-145)
[2017-03-07 04:35] LABS: BLOOD UREA NITROGEN 11 mg/dL (6-24)
--- NOTE | 2017-03-07 04:53 | NUR ---
Significant Event: A/O x3. 99.9-98.7 temp. Morphine FIRE PREVENTION INSPECTOR pump with 6 attempts, 6 delivers. [place] x1 given. VSS on 1L. SBP 119-137. LS clear/dim. 24-28 resps. shallow breathing. 251 blood sugar, 10 units given. Rested well during night. Follow up: Continue to monitor per plan of care.
--- NOTE | 2017-03-07 15:02 | NUR ---
POST CABG DIET ED COMPLETED W/PT AND PT'S . PT STARTED FOLLOWING A MODIFIED ORNISH DIET PRIOR TO SURGERY (LOW FAT/LOW SUGAR/LOW SALT). NEITHER PT OR PT'S HAVE QUESTIONS RE: LOW FAT DIET ED. ENCOURAGED PT TO CONTINUE W/GOOD PO INTAKE. WENT OVER THE IMPORTANCE OF PROTEIN FOR HEALING. EXPECT GOOD COMPLIANCE.
--- NOTE | 2017-03-07 16:06 | NUR ---
PATIENT IS A&0X3. VSS. TITRATED TO R/A, TOLERATES WELL. 1417 LAST PERCOCET. RATING 4/10 PAIN BUT STATES TOLERABLE. UP WAKLING IN HALLWAY WITH CARDIAC REHAB, TOLERATES ACTIVITY WELL. BLAISE DRAIN IN PLACE WITH 10ML OF SEROSANG. DRAINAGE. NO BM RESULT. ON BOWEL PROGRAM, STATES HE IS PASSING GAS. GIVEN MILK OF MAG PRN. TO CON'T WITH POC.
[2017-03-07 20:06] LABS: BILIRUBIN URINE NEGATIVE (NEGATIVE); BLOOD URINE 250 /UL (NEGATIVE); GLUCOSE URINE 1000 mg/dL (NEGATIVE); KETONE URINE NEGATIVE (NEGATIVE); LEUKOCYTES URINE NEGATIVE /UL (NEGATIVE); NITRITE URINE NEGATIVE (NEGATIVE); PROTEIN URINE NEGATIVE (NEGATIVE); SPEC GRAVITY URINE 1.005 (1.003-1.035); UROBILINOGEN URINE NORMAL (NORMAL)
[2017-03-07 20:09] LABS: COLOR URINE YELLOW (YELLOW); TURBIDITY URINE CLEAR (CLEAR)
[2017-03-07 20:14] LABS: RBC URINE 20-50 #/HPF (NEGATIVE); WBC URINE 0-2 #/HPF (NEGATIVE)
[2017-03-07 20:17] LABS: BACTERIA URINE NEGATIVE (NEGATIVE); EPITHELIAL URINE NEGATIVE #/HPF (NEGATIVE)
--- NOTE | 2017-03-08 05:03 | NUR ---
A/O. HR 80-90s. SBP 90-130. AFEBRILE. ROOM AIR. WOUND VAC TO STERMUM INTACT. 1 BLAISE WITH 10 ML OUT. L) LEG HARVEST SITE. SBA. LG BM PATIENT REPORT.
--- NOTE | 2017-03-08 15:45 | NUR ---
Spoke with patient and . Plan is to go home tomorrow. will assist as needed at home. No discharge needs at this time. Will follow.
--- NOTE | 2017-03-08 19:05 | NUR ---
Significant Event: ALERT & ORIENTED. VSS, AFEBRILE, ROOM AIR. DIAPHORETIC AT TIMES. AMBULATED HALLS MANY TIMES. BLAISE AND WOUND VAV REMOVED. ONE TAB NORCO GIVEN Q2-3 HOURS. NOTIFIED OF INSULIN ADMIN ERROR, NO NEW ORDERS. NOTIFIED, ORDERS TO STILL TAKE VICOTZA THIS AM AND GIVE ADDITIONAL 10 UNITS OF TRESIBA AT BEDTIME. ACCUCHEK ACHS. 2000 ML FLUID RESTRICT. Follow up: DC TO HOME TOMORROW
[2017-03-09 04:41] LABS: BASOPHIL % 0.2 %; EOSINOPHIL # 0.8 K/uL (0.0-0.5); EOSINOPHIL % 7.5 %; HEMATOCRIT 34.7 % (37.0-53.0); HEMOGLOBIN 11.4 g/dL (12.0-17.0); IMMATURE GRANULOCYTE # 0.1 K/uL (0.0-0.3); IMMATURE GRANULOCYTE % 0.5 %; LYMPHOCYTE % 19.9 %; MCH 29.4 pg (27.0-34.0); MCHC 32.9 gm/dL (32.0-36.5); MCV 89.4 fl (83.0-98.0); MONOCYTE # 1.6 K/uL (0.0-1.0); MONOCYTE % 16.3 %; MPV 10.6 fl (9.4-12.4); NEUTROPHIL # (ANC) 5.6 K/uL (1.4-9.0); NEUTROPHIL % 55.6 %; NRBC % 0 /100WBC (0-0.00); RBC 3.88 M/uL (4.00-6.00); RDW-CV 13.9 % (11.9-14.6)
[2017-03-09 04:51] LABS: PLATELET COUNT 256 K/uL (150-450)
[2017-03-09 05:01] LABS: ALBUMIN 2.5 gm/dL (3.5-5.0); BLOOD UREA NITROGEN 20 mg/dL (6-24); CALCIUM 8.6 mg/dL (8.5-10.5); CHLORIDE 102 mMol/L (96-110); CO2 29 mMol/L (22-32); CREATININE 0.8 mg/dL (0.6-1.3); PHOSPHORUS 5.3 mg/dL (2.5-4.9); SODIUM 139 mMol/L (135-145)
--- NOTE | 2017-03-09 05:04 | NUR ---
A/O. HR 80s. SBP 110-120s. ROOM AIR. AFEBRILE. NORCO FOR PAIN. C/O 7/10 L) CHEST/BACK PAIN. EKG NEGATIVE. CXR SHOWED FREE AIR. MORPHINE AND GASX WITH RELIEF NOTED. NO BM. VOIDS PER URINAL. SBA WITH HEART HUGGER. STUNMARQUISE DELINQUENCY PREVENTION OFFICER. PLAN FOR DISMISSAL TODAY.
[2017-03-09] MEDS ORDERED: HYDROCODON-ACE1 EAC4 PO ×2 (12:20→12:29)
[2017-03-09] MEDS ORDERED: CORDARONE,PACE200 MG PO (12:21)
[2017-03-09] MEDS ORDERED: COLACE100 MG PO (12:23)
[2017-03-09] MEDS ORDERED: LASIX40 MG PO (12:24)
[2017-03-09] MEDS ORDERED: K-TAB 10MEQ10 MEQ PO (12:24)
== END 2017-03-09 12:00 | disposition disaster alternative care site (69) | DRG 234 ==
LOC: GPCU 06:13 → GPOC 06:13 → GPCU 09:23 → GPOC 09:24 → GICU 03-04 11:22 → GPCU 03-05 14:42
PROVIDERS: Nurse Practitioner Women's Health; Thoracic Surgery (Cardiothoracic Vascular Surgery); ADMIT Internal Medicine Cardiovascular Disease
PROC: B2111ZZ Fluoroscopy of Multiple Coronary Arteries using Low Osmolar Contrast (ICD-10-PCS; 2017-03-01)
PROC: B24BZZ4 Ultrasonography of Heart with Aorta, Transesophageal (ICD-10-PCS; principal; 2017-03-04)
PROC: 02100A9 Bypass Coronary Artery, One Artery from Left Internal Mammary with Autologous Arterial Tissue, Open Approach (ICD-10-PCS; principal; 2017-03-04)
PROC: 021109W Bypass Coronary Artery, Two Arteries from Aorta with Autologous Venous Tissue, Open Approach (ICD-10-PCS; principal; 2017-03-04)
PROC: 03HY32Z Insertion of Monitoring Device into Upper Artery, Percutaneous Approach (ICD-10-PCS; principal; 2017-03-04)
PROC: 06BQ4ZZ Excision of Left Saphenous Vein, Percutaneous Endoscopic Approach (ICD-10-PCS; principal; 2017-03-04)
PROC: 05HY32Z Insertion of Monitoring Device into Upper Vein, Percutaneous Approach (ICD-10-PCS; principal; 2017-03-04)
PROC: 5A1221Z Performance of Cardiac Output, Continuous (ICD-10-PCS; principal; 2017-03-04)
DX: I25.10 Atherosclerotic heart disease of native coronary artery without angina pectoris (principal); I25.82 Chronic total occlusion of coronary artery; I25.2 Old myocardial infarction; I10 Essential (primary) hypertension; E78.5 Hyperlipidemia, unspecified; E11.9 Type 2 diabetes mellitus without complications; Z79.4 Long term (current) use of insulin; Z95.5 Presence of coronary angioplasty implant and graft; G89.29 Other chronic pain; M54.2 Cervicalgia; G62.9 Polyneuropathy, unspecified; Z79.82 Long term (current) use of aspirin; M25.512 Pain in left shoulder
CPT/HCPCS: C1769; C1887; C1894; J0282; J1644; J1650; J1885; J1940; J2001; J2150; J2250; J2270; J2440; J3010; J3370; J3475; J3480; J3490; J7030; J7040; J7050; J7060; J7121; P9045; P9047

== ENCOUNTER → 2017-03-25 | Outpatient (CLI) | payer BC ==
[~2017-03-25] MED LIST changes: +COLACE100 MG PO; +CORDARONE,PACE200 MG PO; +HYDROCODON-ACE1 EAC4 PO; +K-TAB 10MEQ10 MEQ PO; +LASIX40 MG PO
== END | disposition disaster alternative care site (69) ==
LOC: GRAD 13:59
DX: Z48.812 Encounter for surgical aftercare following surgery on the circulatory system (principal); Z95.1 Presence of aortocoronary bypass graft